=== PATIENT | female | born 1975 | race African-American/Black ===

== ENCOUNTER 2018-01-26 12:22 | Emergency (ER) | END 2018-01-26 15:15 | disposition home or self-care (01) ==

== ENCOUNTER 2018-04-01 11:52 | Emergency (ER) | payer SELFPAY ==
[~2018-04-01] VITALS: Ht 157.5 cm; Wt 76.4 kg
[~2018-04-01 11:52] MED LIST: ALBU18HF INHALATION; CYCL10TA7 PO; IBUP-1542 PO; MUPI22OI2 TOP; SULF1TAB31 PO
[2018-04-01 12:03] VITALS: PULSE 75; Ht 157.5 cm; Wt 76.4 kg
[2018-04-01] MEDS ORDERED: ACETAMINOPHEN 500 MG TAB PO STA (12:15)
[2018-04-01] MEDS ORDERED: IBUPROFEN 800 MG TAB PO ONE (12:30)
[2018-04-01] MEDS ORDERED: IBUP800T48 PO (13:28)
[2018-04-01] MEDS ORDERED: ACET500C5 PO (13:28)
[2018-04-01] MEDS ORDERED: AMOX1TAB10 PO (13:28)
--- NOTE | 2018-04-01 13:40 | ERD ---
ER Documentation Chief Complaint Chief Complaint sore throat x 2 days HPI 42-year-old female presenting with sore throat times 2 days. Patient developed a fever. Patient is some mild green mucus and dry cough. She is a mild runny nose. She has a mild headache diffuse body aches. She has had the symptoms for the last 2 days. Denies any sick contacts. Medical history is asthma, heart murmur, VSD with pacemaker inserted. NKDA. Surgical history of pacemaker, C- section, orthopedic knee surgery. Social history denies ROS All systems reviewed and are negative except as per history of present illness. Medications Home Meds Active Scripts Acetaminophen* (Tylophen*) 500 Mg Capsule, 1 CAP PO Q6H PRN for PAIN AND OR ELEVATED TEMP, #20 CAP Prov:EMMANUELLE PINEDA PA-C 04/01/18 Ibuprofen* (Motrin*) 800 Mg Tab, 800 MG PO Q6, #30 TAB Prov:EMMANUELLE PINEDA PA-C 04/01/18 Amoxicillin/Potassium Clav (Amox-Clav 875-125 mg Tablet) 875-125 mg Tab, 1 TAB PO BID for 7 Days, #14 TAB Prov:EMMANUELLE PINEDA PA-C 04/01/18 Albuterol Sulfate* (Ventolin HFA*) 18 Gm Hfa.aer.ad, 2 PUFF INHALATION Q4H, #1 INHALER Prov:MARELY SIDDIQUI NP 01/26/18 Cyclobenzaprine Hcl* (Cyclobenzaprine Hcl*) 10 Mg Tablet, 10 MG PO TID, #15 TAB Prov:MARELY SIDDIQUI SENIOR LEAD [employer] DEVELOPER 01/26/18 Ibuprofen* (Motrin*) 600 Mg Tab, 600 MG PO Q6H PRN for PAIN AND OR ELEVATED TEMP, #30 TAB Prov:MARELY SIDDIQUI SENIOR LEAD JAVA DEVELOPER 01/26/18 Mupirocin* (Bactroban*) 2% -22 Gram Oint...g., 1 APPLIC TOP BID for 7 Days, EA Prov:KEMAL HILARIO PA-C 12/06/17 Sulfamethoxazole/Trimethoprim* (Bactrim Ds* Tablet) 1 Each Tablet, 1 TAB PO BID, #14 TAB Prov:KEMAL HILARIO PA-C 12/06/17 Allergies Allergies: Coded Allergies: No Known Allergy (Unverified , 04/01/18) PMhx/Soc Hx Alcohol Use: No Hx Substance Use: No Hx Tobacco Use: No FmHx Family History: No diabetes, No coronary disease, No other Physical Exam Vitals Vital Signs Date Temp Pulse Resp B/P (MAP) Pulse Ox O2 O2 Flow FiO2 Time Delivery Rate 04/01/18 100.2 75 18 135/81 97 12:03 (99) Physical Exam GENERAL: The patient is well-appearing, well-nourished, in no acute distress HEENT: Atraumatic. Conjunctivae are pink. Pupils equal, round, and reactive to light. There is no scleral icterus. Tympanic membranes clear bilaterally. Oropharynx erythematous with exudate noted to bilateral tonsils and uvula midline. No nystagmus or photophobia. NECK: C-spine is soft and supple. There is no meningismus. There is no cervical lymphadenopathy. CHEST: Clear to auscultation bilaterally. There are no rales, wheezes or rhonchi. HEART: Regular rate and rhythm. No murmurs, clicks, rubs or gallops. No S3 or S4. Results 24 hrs Laboratory Tests Test 04/01/18 12:31 Monoscreen Negative Current Medications Medications Dose Sig/Pascale Start Time Status Last (Trade) Ordered Route PRN Stop Time Admin Dose Reason Admin Ibuprofen 800 mg ONCE ONCE 04/01/18 DC 04/01/18 (Motrin) PO 12:30 04/01/18 12:22 12:32 1,000 mg ONCE STAT 04/01/18 DC 04/01/18 Acetaminophen PO 12:15 04/01/18 12:22 (Tylenol 12:16 Tab) Procedures/MDM ER course: [place], strep and influenza negative. MDM: 42-year-old female presenting with sore throat times 2 days. Patient had negative screening test in the ER however exam is concerning for infection I will treat with antibiotics. I have low suspicion for deep tracking abscess and I have low suspicion for peritonsillar abscess. Patient is discharged stricter precautions and told to follow-up with primary care within 1-2 days for close evaluation. All questions answered at discharge Departure Diagnosis: Primary Impression: Sore throat Condition: Stable Patient Instructions: When You Have a Sore Throat Referrals: COMMUNITY CLIN[facility] YOU HAVE RECEIVED A MEDICAL SCREENING EXAM AND THE RESULTS INDICATE THAT YOU DO NOT HAVE A CONDITION THAT REQUIRES URGENT TREATMENT IN THE EMERGENCY DEPARTMENT. FURTHER EVALUATION AND TREATMENT OF YOUR CONDITION CAN WAIT UNTIL YOU ARE SEEN IN YOUR DOCTORS OFFICE WITHIN THE NEXT 1-2 DAYS. IT IS YOUR RESPONSIBILITY TO MAKE AN APPOINTMENT FOR FOLOW-UP CARE. IF YOU HAVE A PRIMARY DOCTOR --you should call your primary doctor and schedule an appointment IF YOU DO NOT HAVE A PRIMARY DOCTOR YOU CAN CALL OUR PHYSICIAN REFERRAL HOTLINE AT IF YOU CAN NOT AFFORD TO SEE A PHYSICIAN YOU CAN CHOSE FROM THE FOLLOWING [facility] [address] [facility]. [facility] [address] [address] [facility] [facility] [address] [facility]. [facility] [address] [place]. [facility] [address] [facility]. [facility]. [address] Additional Instructions: FOLLOW UP WITH YOUR PRIMARY CARE PHYSICIAN TOMORROW.Return to this facility if you are not improving as expected. EMMANUELLE PINEDA PA-C Apr 01, 2018 13:40
[2018-04-01 13:58] VITALS: BP 135/81; RESP 18
== END 2018-04-01 13:59 | disposition home or self-care (01) ==
LOC: FTE 11:52
DX: J02.9 Acute pharyngitis, unspecified (principal); J45.909 Unspecified asthma, uncomplicated; Z95.0 Presence of cardiac pacemaker
CPT/HCPCS: 86308; 87400; 87880; 99283

== ENCOUNTER 2018-09-25 17:38 | Emergency (ER) | payer OTHER ==
[~2018-09-25] VITALS: Ht 157.5 cm; Wt 79.0 kg
[~2018-09-25 17:38] MED LIST changes: +ACET500C5 PO; +AMOX1TAB10 PO; +IBUP800T48 PO
[2018-09-25 17:51] VITALS: Ht 157.5 cm; Wt 79.0 kg
[2018-09-25] MEDS ORDERED: ASPIRIN 81 MG TAB PO STA (20:06)
[2018-09-25] MEDS ORDERED: morphine 2 MG INJ IV STA ×2 (20:06→21:30)
--- NOTE | 2018-09-25 23:19 | ERD ---
ER Documentation Chief Complaint Chief Complaint Pt with c/o non-radiating CP since about 30 minutes ago HPI 42-year-old female presenting with substernal chest pain that started about 30 minutes prior to arrival. She states that is "pushing" type pain, severe, 8 out of 10, nonradiating, worse with deep inspiration. No alleviating or exacerbating factors. The pain has been constant since it started. She did feel slightly dizzy when the pain started. It was unprovoked. No associated vomiting, fever, chills, cough, hemoptysis. Patient does have an extensive cardiac history including IN at a very young age in her 20s as well as VSD and pacemaker for what sounds like sick sinus syndrome. 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 ROS All systems reviewed and are negative except as per history of present illness. Medications Home Meds Active Scripts Acetaminophen* (Tylophen*) 500 Mg Capsule, 1 CAP PO Q6H PRN for PAIN AND OR ELEVATED TEMP, #20 CAP Prov:EMMANUELLE PINEDA PA-C 04/01/18 Ibuprofen* (Motrin*) 800 Mg Tab, 800 MG PO Q6, #30 TAB Prov:EMMANUELLE PINEDA PA-C 04/01/18 Amoxicillin/Potassium Clav (Amox-Clav 875-125 mg Tablet) 875-125 mg Tab, 1 TAB PO BID for 7 Days, #14 TAB Prov:EMMANUELLE PINEDA PA-C 04/01/18 Albuterol Sulfate* (Ventolin HFA*) 18 Gm Hfa.aer.ad, 2 PUFF INHALATION Q4H, #1 INHALER Prov:MARELY SIDDIQUI NP 01/26/18 Cyclobenzaprine Hcl* (Cyclobenzaprine Hcl*) 10 Mg Tablet, 10 MG PO TID, #15 TAB Prov:MARELY SIDDIQUI NP 01/26/18 Ibuprofen* (Motrin*) 600 Mg Tab, 600 MG PO Q6H PRN for PAIN AND OR ELEVATED TEMP, #30 TAB Prov:MARELY SIDDIQUI NP 01/26/18 Mupirocin* (Bactroban*) 2% -22 Gram Oint...g., 1 APPLIC TOP BID for 7 Days, EA Prov:KEMAL HILARIO PA-C 12/06/17 Sulfamethoxazole/Trimethoprim* (Bactrim Ds* Tablet) 1 Each Tablet, 1 TAB PO BID, #14 TAB Prov:KEMAL HILARIO PA-C 12/06/17 Allergies Allergies: Coded Allergies: No Known Allergy (Unverified , 04/01/18) PMhx/Soc History of Surgery: Yes (Pacemaker) Hx Cardiac Disorders: Yes (HX OF IN in her 20s, VSD, pacemaker) Hx Alcohol Use: No Hx Substance Use: No Hx Tobacco Use: No Smoking Status: Never smoker FmHx Family History: No diabetes Physical Exam Vitals Vital Signs Date Temp Pulse Resp B/P (MAP) Pulse Ox O2 O2 Flow FiO2 Time Delivery Rate 09/26/18 98.0 52 17 120/71 100 Room Air 00:27 (87) 09/25/18 50 17 115/76 100 Room Air 22:31 (89) 09/25/18 52 18 135/70 100 Room Air 21:00 (91) 09/25/18 50 18 158/74 100 Room Air 19:00 (102) 09/25/18 98.0 54 18 164/70 99 17:51 (101) Physical Exam Const: No acute distress Head: Atraumatic Eyes: Normal Conjunctiva, PERRLA ENT: Normal External Ears, Nose and Mouth. Neck: Full range of motion. No meningismus. Resp: Clear to auscultation bilaterally Cardio: Regular rate and rhythm, no murmurs. 2+ distal pulses in all 4 extremities Abd: Soft, non tender, non distended. Normal bowel sounds Skin: No petechiae or rashes Back: No midline or flank tenderness Ext: No cyanosis, or edema Neur: Awake and alert, normal speech, no facial asymmetry, strength and sensation is intact in all 4 extremities Psych: Normal Mood and Affect Result Diagram: 09/25/18193209/25/181932 Results 24 hrs Laboratory Tests Test 09/25/18 19:33 09/25/18 23:18 White Blood Count 4.0 10^3/ul Red Blood Count 4.03 10^6/ul Hemoglobin 11.7 g/dl Hematocrit 35.9 % Mean Corpuscular Volume 89.1 fl Mean Corpuscular Hemoglobin 29.0 pg Mean Corpuscular Hemoglobin Concent 32.6 g/dl Red Cell Distribution Width 15.2 % Platelet Count 340 10^3/UL Mean Platelet Volume 9.0 fl Immature Granulocytes % 0.300 % Neutrophils % 40.8 % Lymphocytes % 46.8 % Monocytes % 8.1 % Eosinophils % 3.0 % Basophils % 1.0 % Nucleated Red Blood Cells % 0.0 /100WBC Immature Granulocytes # 0.010 10^3/ul Neutrophils # 1.6 10^3/ul Lymphocytes # 1.9 10^3/ul Monocytes # 0.3 10^3/ul Eosinophils # 0.1 10^3/ul Basophils # 0.0 10^3/ul Nucleated Red Blood Cells # 0.0 10^3/ul D-Dimer 411.40 ng/ml D-Dimer Comment Sodium Level 140 mmol/L Potassium Level 4.2 mmol/L Chloride Level 105 mmol/L Carbon Dioxide Level 25 mmol/L Anion Gap 10 Blood Urea Nitrogen 9 mg/dl Creatinine 0.50 mg/dl Est Glomerular Filtrat Rate mL/min > 60 mL/min Glucose Level 89 mg/dl Calcium Level 9.8 mg/dl Total Bilirubin 0.6 mg/dl Direct Bilirubin 0.00 mg/dl Indirect Bilirubin 0.6 mg/dl Aspartate Amino Transf (AST/SGOT) 31 IU/L Alanine Aminotransferase (ALT/SGPT) 19 IU/L Alkaline Phosphatase 54 IU/L Troponin I < 0.012 ng/ml < 0.012 ng/ml Total Protein 8.8 g/dl Albumin 4.4 g/dl Globulin 4.40 g/dl Albumin/Globulin Ratio 1.00 Lipase 22 U/L Serum HCG, Qualitative NEGATIVE Current Medications Medications Dose Sig/Pascale Start Time Status Last (Trade) Ordered Route PRN Stop Time Admin Dose Reason Admin Aspirin 162 mg ONCE STAT 09/25/18 DC 09/25/18 (Aspirin) PO 20:06 20:27 09/25/18 20:08 Morphine 2 mg ONCE STAT 09/25/18 DC 09/25/18 Sulfate IV 20:06 20:28 (morphine) 09/25/18 20:08 Morphine 2 mg ONCE STAT 09/25/18 DC 09/25/18 Sulfate IV 21:30 21:54 (morphine) 09/25/18 21:31 Procedures/MDM EMERGENT LABS AND DIAGNOSTIC STUDIES: Lab Results above were reviewed and interpreted by me. CBC: no anemia or evidence of infection CMP:no e/o severe acidosis, alkalosis, renal failure, diabetic ketoacidosis, liver disease Troponin within normal limits, not indicative of cardiac ischemia repeat troponin negative D-dimer normal 12-lead EKG was interpreted by Nathan Serrano MD: Atrial paced rhythm at 50 bpm Normal axis Normal intervals No acute ST or T wave changes suggestive of acute ischemia or STEMI. Radiology Results as interpreted by Radiology below were reviewed by Isidro Serrano MD: Chest x-ray shows no acute abnormalities Initial Nursing notes reviewed. Previous Medical Records requested via the Electronic Health Record. EMERGENCY DEPARTMENT COURSE / MEDICAL DECISION MAKING: Patient is presenting with sudden onset chest pain of unclear origin. Vitals were stable. There is no evidence of acute coronary syndrome. D-dimer is within normal limits, low suspicion for PE. I have a low suspicion for aortic dissection. I did consider pericarditis, however her symptoms are not very consistent with pericarditis. She was treated with 2 doses of low-dose morphine with some improvement of her symptoms. I discussed the case with the [facility] admitting physician, Dr. Dockery, but he does not feel the patient requires admission. He will put in for an urgent cardiology referral. He does not suspect that this is cardiac in origin. I agree. Patient feels comfortable going home at this time. She states she lives close by and will come back if her symptoms worsen. I told her that she would be receiving a referral to cardiology and she is happy about this plan. Patient was observed in the ED for about 7 hours. Upon reevaluation prior to discharge, patient states that her pain has significantly subsided. Patient's blood pressure was elevated (>120/80) but appears stable without evidence of hypertension emergency or urgency. The patient was counseled about the risks of hypertension and urged to pursue outpatient monitoring and therapy within a week with their primary care physician. Departure Diagnosis: Primary Impression: Chest pain Chest pain type: unspecified Qualified Codes: R07.9 - Chest pain, unspecified Condition: Stable EKLEEANN JOHN MD Sep 25, 2018 23:19
[2018-09-26 00:27] VITALS: BP 120/71; PULSE 52; RESP 17
== END 2018-09-26 00:28 | disposition home or self-care (01) ==
LOC: E/R 17:38
DX: R07.9 Chest pain, unspecified (principal); I25.2 Old myocardial infarction
CPT/HCPCS: 36415; 71045; 80053; 83690; 84484; 84703; 85025; 85378; 93005; 96374; 96375; 99285; J2270